=== PATIENT | female | born 1990 | race Caucasian/White ===

== ENCOUNTER 2022-10-29 15:08 | Inpatient (IN) | payer OTHER ==
[~2022-10-29] VITALS: Ht 175.3 cm; Wt 84.4 kg
[2022-10-29] MEDS ORDERED: PRENATAL TABLE1 EAC5 PO (16:06)
[2022-10-29] MEDS ORDERED: VALTREX1000 MG PO (16:06)
== END 2022-11-01 11:37 | disposition home or self-care (01) | DRG 807 ==
LOC: LDR 15:08 → OB/GYN 10-30 04:59
PROVIDERS: ADMIT Obstetrics & Gynecology Maternal & Fetal Medicine; ATTEND Obstetrics & Gynecology Maternal & Fetal Medicine
PROC: 4A1HXCZ Monitoring of Products of Conception, Cardiac Rate, External Approach (ICD-10-PCS; 2022-10-29)
PROC: 10E0XZZ Delivery of Products of Conception, External Approach (ICD-10-PCS; principal; 2022-10-30)
PROC: 0KQM0ZZ Repair Perineum Muscle, Open Approach (ICD-10-PCS; 2022-10-30)
PROC: 0UQMXZZ Repair Vulva, External Approach (ICD-10-PCS; 2022-10-30)
DX: O70.1 Second degree perineal laceration during delivery (principal); O71.82 Other specified trauma to perineum and vulva; Z37.0 Single live birth; Z3A.37 37 weeks gestation of pregnancy

== ENCOUNTER 2024-01-13 10:09 | Outpatient (CLI) | payer OTHER ==
[~2024-01-13 10:09] MED LIST: PRENATAL TABLE1 EAC5 PO; VALTREX1000 MG PO
== END 2024-01-13 10:21 | disposition home or self-care (01) ==
LOC: MAMO-SONO 10:09
DX: N63 Unspecified lump in breast (principal); Z12.31 Encounter for screening mammogram for malignant neoplasm of breast; N64.4 Mastodynia; N60.11 Diffuse cystic mastopathy of right breast

== ENCOUNTER 2025-01-18 07:59 | Outpatient (CLI) | payer OTHER | END 2025-01-18 08:08 | disposition home or self-care (01) | LOC: MAMO-SONO 07:59 | PROVIDERS: ATTEND Obstetrics & Gynecology Gynecology | DX: N63.0 Unspecified lump in unspecified breast (principal); N64.4 Mastodynia; N60.11 Diffuse cystic mastopathy of right breast; Z12.31 Encounter for screening mammogram for malignant neoplasm of breast ==